=== PATIENT | female | born 1990 | race Caucasian/White ===

== ENCOUNTER 2016-10-18 13:25 | Emergency (ER) | payer MEDICAID ==
[~2016-10-18] VITALS: Ht 165.1 cm; Wt 95.3 kg
[2016-10-18 13:25] VITALS: BP 120/78; PULSE 114; RESP 18; TEMP 97.8; O2SAT 100
[2016-10-18 14:56] LABS: BASOPHILS % (AUTO) 0.5 % (0.0-2.0); EOSINOPHILS % (AUTO) 0.3 % (0.0-4.0); HEMATOCRIT 43.6 % (36-48); HEMOGLOBIN 14.9 g/dL (12.0-16.0); LYMPHOCYTES # (AUTO) 0.6 K/uL (1.0-5.5); LYMPHOCYTES % (AUTO) 16.1 % (20.5-51.5); MEAN CORPUSCULAR HEMOGLOBIN 31 pg (27-31); MEAN CORPUSCULAR HGB CONC 34 % (32-36); MEAN CORPUSCULAR VOLUME 90 fL (79.0-98.0); MONOCYTES # (AUTO) 0.3 K/uL (0.0-1.0); MONOCYTES % (AUTO) 8.9 % (1.7-9.3); NEUTROPHILS # (AUTO) 2.6 K/uL (1.8-7.7); NEUTROPHILS % (AUTO) 74.2 % (40.0-70.0); PLATELET COUNT (AUTO) 234 K/uL (130-430); RED BLOOD CELL COUNT(AUTO) 4.86 MIL/uL (4.2-6.2); RED CELL DISTRIBUTION WIDTH 12.1 % (9.0-15.0); WHITE BLOOD COUNT (AUTO) 3.5 K/uL (4.8-10.8)
[2016-10-18 15:05] LABS: CALCIUM 8.9 mg/dL (8.4-11.0); CREATININE 1.2 mg/dL (0.55-1.30)
[2016-10-18 15:07] LABS: PROTHROMBIN TIME 11.3 SECS (9.5-12.5)
[2016-10-18 15:10] LABS: ALBUMIN 3.8 g/dL (3.4-4.8); TOTAL BILIRUBIN 0.7 mg/dL (0.0-1.0); TOTAL PROTEIN, SERUM 7.7 g/dL (6.4-8.3)
[2016-10-18 16:11] LABS: AMYLASE 48 U/L (0-100); LIPASE 281 U/L (73-393)
[2016-10-18] MEDS ORDERED: MAG HYDROX/AL HYDROX/SIMETH 30 ML, BELLADONNA ALKALOIDS/PHENOBARB 10 ML, LIDOCAINE VISC... PO ONE ×3 (16:45)
[2016-10-18 17:15] VITALS: BP 117/76; PULSE 105; RESP 16; TEMP 97.2; O2SAT 100
== END 2016-10-18 17:15 | disposition home or self-care (01) ==
LOC: SED 13:25
DX: K20.9 Esophagitis, unspecified (principal)
CPT/HCPCS: 36415; 71010; 76700; 80053; 81025; 82150; 82550; 83690; 84484; 85025; 85610; 85730; 93005; 99285; J2001

== ENCOUNTER 2017-05-03 18:28 | Emergency (ER) | payer MEDICAID ==
[~2017-05-03] VITALS: Ht 165.1 cm; Wt 108.9 kg
[2017-05-03 18:28] VITALS: BP_SYST 137
[2017-05-03 18:55] LABS: BASOPHILS % (AUTO) 0.5 % (0.0-2.0); EOSINOPHILS # (AUTO) 0.1 K/uL (0.0-0.4); EOSINOPHILS % (AUTO) 1.2 % (0.0-4.0); HEMATOCRIT 41.5 % (36-48); HEMOGLOBIN 13.8 g/dL (12.0-16.0); LYMPHOCYTES # (AUTO) 2.3 K/uL (1.0-5.5); LYMPHOCYTES % (AUTO) 23.9 % (20.5-51.5); MEAN CORPUSCULAR HEMOGLOBIN 31 pg (27-31); MEAN CORPUSCULAR HGB CONC 33 % (32-36); MEAN CORPUSCULAR VOLUME 92 fL (79.0-98.0); MONOCYTES # (AUTO) 0.5 K/uL (0.0-1.0); MONOCYTES % (AUTO) 5.4 % (1.7-9.3); NEUTROPHILS # (AUTO) 6.9 K/uL (1.8-7.7); PLATELET COUNT (AUTO) 308 K/uL (130-430); RED BLOOD CELL COUNT(AUTO) 4.54 MIL/uL (4.2-6.2); WHITE BLOOD COUNT (AUTO) 9.8 K/uL (4.8-10.8)
[2017-05-03 19:01] LABS: ANION GAP 8 (5-15); CALCIUM 9.4 mg/dL (8.4-11.0); CHLORIDE 105 mmol/L (98-107); CREATININE 1.19 mg/dL (0.55-1.30); GFR AFRICAN AMERICAN 69 mL/min (>90); GLUCOSE 94 mg/dL (70-99); POTASSIUM 3.9 mmol/L (3.5-5.1); SODIUM SERUM 138 mmol/L (136-145); UREA NITROGEN, BLOOD 23 mg/dL (8-21)
[2017-05-03 19:05] LABS: PROTHROMBIN TIME 10.9 SECS (9.5-12.5)
[2017-05-03 19:10] LABS: ALANINE AMINOTRANSFERASE 19 U/L (12-78); ALBUMIN 4.1 g/dL (3.4-4.8); ASPARTATE AMINOTRANSFERASE 12 U/L (10-37); CREATINE KINASE, TOTAL 88 U/L (26-192); SALICYLATE 1 mg/dL (3-30); TOTAL BILIRUBIN 0.6 mg/dL (0.0-1.0); TOTAL PROTEIN, SERUM 7.5 g/dL (6.4-8.3)
[2017-05-03 19:14] LABS: ALCOHOL, BLOOD < 3 mg/dL (<10)
[2017-05-03 19:32] LABS: ACETAMINOPHEN < 1 ug/mL (1-30)
[2017-05-03 20:39] LABS: BILIRUBIN,URINE NEGATIVE (NEGATIVE); BLOOD, URINE 3+ (NEGATIVE); COLOR,URINE YELLOW (YELLOW); GLUCOSE,URINE NEGATIVE (NEGATIVE); KETONES,URINE NEGATIVE (NEGATIVE); NITRITE, URINE POSITIVE (NEGATIVE); PROTEIN URINE NEGATIVE (NEGATIVE); UROBILINOGEN,URINE 0.2 (0.2-1.0)
[2017-05-03 20:49] LABS: CLARITY/URINE HAZY (CLEAR); LEUKOCYTE ESTERASE ,URINE TRACE (NEGATIVE)
[2017-05-03 20:52] LABS: BACTERIA,URINE MODERATE /HPF (None Seen); MUCUS,URINE None Seen /LPF (None Seen); RBC,URINE 0-3 /HPF (0-3)
[2017-05-03 20:53] LABS: BARBITURATE, URINE NEGATIVE (NEG <=200); BENZODIAZEPINE, URINE NEGATIVE (NEG <=150); CANNABINOID, URINE NEGATIVE (NEG <=50); COCAINE, URINE NEGATIVE (NEG <=150); METHAMPHETAMINES SCREEN,URINE NEGATIVE (NEG <=500); OPIATE, URINE NEGATIVE (NEG <=100); PHENCYCLIDINE SCREEN,URINE NEGATIVE (NEG <=25); UR TRICYCLIC ANTIDEPRESSANTS NEGATIVE (NEG <=300); URINE AMPHETAMINE NEGATIVE (NEG <=500); URINE METHADONE NEGATIVE (NEG <=200); URINE OXYCODONE SCREEN NEGATIVE (NEG <=100); URINE PROPOXYPHENE SCREEN NEGATIVE (NEG <=300)
[2017-05-03 21:15] VITALS: BP_SYST 136
== END 2017-05-03 21:05 | disposition home or self-care (01) ==
LOC: SED 18:28
DX: R41.82 Altered mental status, unspecified (principal); R53.1 Weakness
CPT/HCPCS: 36415; 70450; 71010; 80053; 80307; 81000; 81025; 82550; 84484; 85025; 85610; 85730; 87086; 93005; 99285; G0480; G0481; G0482

== ENCOUNTER 2018-06-11 23:26 | Emergency (ER) | payer MEDICAID ==
[~2018-06-11] VITALS: Ht 165.1 cm; Wt 102.1 kg
[2018-06-11 23:38] VITALS: BP_SYST 136
== END 2018-06-11 23:45 | disposition left against medical advice (07) ==
LOC: SED 23:26
DX: G43.909 Migraine, unspecified, not intractable, without status migrainosus (principal); R11.2 Nausea with vomiting, unspecified; Z53.21 Procedure and treatment not carried out due to patient leaving prior to being seen by health care provider

== ENCOUNTER 2023-03-04 10:41 | Emergency (ER) | payer MEDICAID ==
[~2023-03-04] VITALS: Ht 165.1 cm; Wt 117.5 kg
[2023-03-04 10:45] VITALS: BP_SYST 135
--- NOTE | 2023-03-04 10:45 | NUR ---
Patient triaged and placed in waiting room. VSS and patient appears in no acute distress at this time. Accompanied by SELF, awaiting available bed, and MD notified of need for MSE.
--- NOTE | 2023-03-04 10:55 | NUR ---
PT STATES THAT SHE THREW HER BACK OUT TODAY AFTER TWISTING WRONG, DENIES ANY TRAUMA.
[2023-03-04] MEDS ORDERED: KETOROLAC TROMETHAMINE 30 MG VIAL IM ONE (11:15)
--- NOTE | 2023-03-04 11:40 | NUR ---
BROUGHT BACK TO BED #7 AND REPORT GIVEN TO LEANNA
--- NOTE | 2023-03-04 11:46 | NUR ---
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 PT IS GCS 15 EYES OPEN SPONTANEOUSLY, ORIENTED TO PERSON, PLACE, TIME, AND SITUATION, AND OBEYS COMMANDS PT DENIES VISUAL ANDAUDITORY ISSUES. PT DENIES SOB AND CHEST PAIN. PT DOES NOT HAVE OBVIOUS TRAUMA TO THE BACK OR BRUSING. PT DENIES N/V/D AND IS IN ROOM 7 ON THE MONITOR PLAN OF CARE CONTINUES.
--- NOTE | 2023-03-04 11:53 | NUR ---
DR KOENIG AT BEDSIDE FOR EVALUATION
[2023-03-04] MEDS ORDERED: methocarbamoL 500 MG TABLET PO ONE (12:15)
[2023-03-04] MEDS ORDERED: MORPHINE 4 MG INJ. 4 MG/ML VIAL IM ONE (13:30)
[2023-03-04] MEDS ORDERED: LIDO1ADH77 TP (14:18)
[2023-03-04] MEDS ORDERED: IBUP-1969 PO (14:18)
[2023-03-04] MEDS ORDERED: CYCL10TA24 PO (14:18)
[2023-03-04 14:45] VITALS: BP_SYST 135
--- NOTE | 2023-03-04 14:47 | NUR ---
Patient given written and verbal discharge instructions and verbalizes understanding. ER MD DR LÓPEZ discussed with patient the results and treatment provided. Patient in stable condition. ID arm band removed. Rx of FLEXERIL given. Patient educated on pain management and to follow up with PMD. Pain Scale 6/10. Opportunity for questions provided and answered. Medication side effect fact sheet provided.
== END 2023-03-04 14:47 | disposition home or self-care (01) ==
LOC: SED 10:41
DX: S39.012A Strain of muscle, fascia and tendon of lower back, initial encounter (principal); R20.2 Paresthesia of skin; Z79.899 Other long term (current) drug therapy; X58.XXXA Exposure to other specified factors, initial encounter; Y93.89 Activity, other specified; Y92.89 Other specified places as the place of occurrence of the external cause; Y99.8 Other external cause status
CPT/HCPCS: 99284; 81025; 96372; J1885; J2270